=== PATIENT | female | born 1935 | race African-American/Black ===

== ENCOUNTER 2017-07-31 04:37 | Emergency (ER) | payer MEDICARE ==
[~2017-07-31] VITALS: Ht 157.5 cm; Wt 77.0 kg
[2017-07-31] MEDS ORDERED: ACETAMINOPHEN 325MG TABLET PO ONE (06:30)
[2017-07-31 08:39] VITALS: BP 109/46
== END 2017-07-31 08:50 | disposition home or self-care (01) ==
LOC: ER 04:37
DX: J06.9 Acute upper respiratory infection, unspecified (principal); I10 Essential (primary) hypertension
CPT/HCPCS: 99283